=== PATIENT | female | born 1950 | race Caucasian/White ===

== ENCOUNTER → 2017-06-09 | Day surgery (SDC) | payer OTHER ==
[~2017-06-09] VITALS: Ht 177.8 cm; Wt 166.0 kg
[~2017-06-09] MED LIST: ACETAMINOPHEN 325 MG TAB PO PRN; ADENOSINE IV SOLN 3 MG/ML 20 ML VIAL ONE; ASCO1CAP3 PO; ATEN-175 PO; ATROPINE SULFATE 0.1 MG/ML 5ML SYR IV PRN; CALC-338 PO; CETI10TA84 PO; CLB200 PO; CYAN3INJ IM; CYM/30 PO; DC ALL ANTICOAGULANTS ONE; DOCU100C31 PO; ERGO500037 PO; FENTANYL CITRATE INJ 50 MCG/1 ML 2 ML VIAL ONE; FLX10 PO; FURO-85 PO; HEPARIN SOD (PORCINE) 1000 UNIT/ML 10 ML VIAL ONE; HYDR-4079 PO; KCLP20 PO; LEVO175T PO; MELO15TA4 PO; MIDAZOLAM HCL 1 MG/ML 2ML VIAL ONE; MULTTAB58 PO; NITROGLYCERIN/D5W 100MCG/ML 20ML SYR ONE; NYST1POW7 TOP; NiCARDipine HCL INJ 2.5 MG/ML 10 ML AMP ONE; OXYSR10 PO; POLY1POW2 PO; PXL/40 PO; RIVA1TAB4 PO; SODIUM CHLORIDE 0.9% 1000ML 1,000 ML IV SCH; SODIUM CHLORIDE 0.9% 1000ML 250 ML IV PRN; VTMD PO; ZOLP10TA6 PO
[2017-06-09 07:13] VITALS: BP 148/78; PULSE 83; TEMP 36.7; O2SAT 98; Ht 177.8 cm; Wt 166.0 kg
--- NOTE | 2017-06-09 09:42 | History & Physical Bridge Note ---
H&P Re-Evaluation Bridge Note: I have examined the patient, reviewed the History & Physical and in the interval since the performance of the History & Physical I have noted the following changes of clinical significance: No changes noted
--- NOTE | 2017-06-09 09:50 | Cardiac Catheterization ---
Procedure Note Procedure Date Jun 09, 2017. Pre-Procedure Diagnosis Angina AUC Score 6 Post-Procedure Diagnosis Moderate CAD Procedure(s) Performed Coronary Angiography, Left Heart Cath, LV Angiography Program Checker Dr. Mondragon Utilization Review Rn(s) None Estimated Blood Loss None Medication(s) Heparin, Versed, Lidocaine 1% Summary of Findings Proximal LAD with an equivocal 50% eccentric stenosis Hemodynamics Rest Ao: 113/78 Final Ao: 125/72 LV: 139/5 Recommendations management recommendations (FFR) Specimens None Radiation Exposure (mGy) 768 Contrast (mls) 117 Fluids (cc crystalloids) 206 Procedural Complication(s) None Disposition Stave Cutting Supervisor Holding/Recovery ACC Data Cardiac Status Clinical evaluation leading to the procedure CAD Presntation: Stable angina Anginal Classification: CCS II Heart Failure: No Cardiogenic Shock w/in 24Hrs: No Cardiac Arrest w/in 24Hrs: No Imaging studies past 6 months: No Stress studies past 6 months: No Coronary Anatomy Dominant: Right Left Main (% Stenosis): Normal LAD (% Stenosis): Proximal (50%) Circumflex (% Stenosis): Normal RCA (% Stenosis): Normal
--- NOTE | 2017-06-09 10:36 | Procedure Note ---
Post-Mod Sedation Assessment General Date of Moderate Sedation Jun 09, 2017. Vital Signs: Vital Signs Past 12 Hours Date Time Temp Pulse Resp B/P (MAP) Pulse Ox O2 Delivery O2 Flow Rate FiO2 06/09/17 10:16 81 18 140/80 (100) 97 Room Air 06/09/17 07:13 36.7 83 20 148/78 98 Room Air Review - Discharge Criteria Vital Signs Stable: Yes Alert/Oriented/Conversant: Yes Returned to Baseline Mental St: Yes Nausea Absent/Minimal: Yes Pain/Discomfort/Absent/Minimal: Yes Normal/Baseline Respirations: Yes Active Bleeding?: No Pt Received D/C Instructions: Yes Prescriptions Given: None Specific Proced. D/C Criteria Distal Pulses Present (Cardiac: Yes Groin site assessed-Card Cath: Yes Voided Prior To Discharge: Yes Discharged Patients Adult Escort/Transportation: Yes
--- NOTE | 2017-06-09 10:51 | Cardiac Catheterization ---
Procedure Note Procedure Date Jun 09, 2017. Pre-Procedure Diagnosis Angina, CAD Post-Procedure Diagnosis Moderate CAD, Cardiothoracic Finding (FFR of proximal LAD stenosis 0.93) Procedure(s) Performed Coronary Angiography, Fractional Flow Cobb Investigation Specialist Dr. Pathak Lead Ruby On Rails Developer(s) JACOBY Segura Estimated Blood Loss 20 Medication(s) Fentanyl, Heparin, Nicardipine (intra arterial), Versed, Lidocaine 1% Summary of Findings Procedure: Fractional flow reserve measurement of proximal LAD stenosis noted on diagnostic cardiac catheterization. Catheterization site: 6 [place] slender glide sheath right radial artery inserted at time of diagnostic cardiac catheterization performed by Dr. Mayur Mondragon. Equipment: 6 [place] EBU 3.75 guide catheter, [place] pressure wire. Protocol: Intravenous heparin was administered to achieve a therapeutic activated clotting time. After the pressure wire was calibrated and normalized it was advanced past the proximal LAD stenosis. IFR and then FFR measurements were performed. FFR measurements were performed after administration of intravenous adenosine at a dose of 180 micrograms/kilogram per minute. It was given for 2 minutes. Follow-up angiography was performed following FFR measurements from orthogonal projections with the wire in place and then with the wire withdrawn. Complications: None. Hemostasis: Terumo TR band. Findings: The IFR measurement was 0.95. The FFR measurement was 0.93. On follow-up angiography there is no evidence of dissection, thrombus, perforation , or distal embolic event. Plan: Based on the IFR in FFR measurements intervention to the LAD stenosis is not indicated. The patient will have continued cardiology follow-up with her caster investment casting Dr. Evangelist Graff. Hemodynamics Rest Ao: 116/68/91 mm Hg Final Ao: 122/72/97 mm Hg LV: NA Recommendations Medical therapy and/or Counseling Specimens None Radiation Exposure (mGy) Total of 1542 for both diagnostic and FFR procedures. Contrast (mls) 45 ml Visipaque Fluids (cc crystalloids) Total of 235 milliliters normal saline for both procedures Drains None Anesthesia Intravenous Versed and fentanyl. Start time 09:39. End time 10:15. Procedural Complication(s) None Disposition Plunger Scoop Operator Holding/Recovery ACC Data Cardiac Status Clinical evaluation leading to the procedure CAD Presntation: Stable angina Anginal Classification: CCS II Heart Failure: No Cardiogenic Shock w/in 24Hrs: No Cardiac Arrest w/in 24Hrs: No Imaging studies past 6 months: Yes Stress studies past 6 months: No Coronary Anatomy Dominant: Right (For complete details please see diagnostic cardiac catheterization report performed by Dr. Mayur Mondragon) Grafts - Circumflex (%): Mid Diagnostic Physician's Name: Mayur Mondragon, DO Status: Elective Closure Device Percutaneous Entry Location: Radial Closure Device: Radial Band Recommendations: Medical therapy and/or Counseling Lesion Segment Name: Proximal LAD Culprit Artery: Yes Stenosis Prior to Rx (%): 50 Chronic Total Occlusion: No (The) IVUS: No FFR: Yes (Of yoseph dawson) Ratio: greater than 0.75% Pre-Procedure FRANKIE Flow: 3 Previously Treated Lesion: No Lesion Complexity: Non-High/Non-C Lesion Length (mm): 9 Thrombus Present: No Bifurcation Lesion: No Guidewire Across Lesion: Yes Guidewire: Stenosis Post-Procedure (%): 50 Post-Procedure FRANKIE Flow: 3 Device(s) Deployed: No Intraprocedure Events Significant Dissection: No Perforation: No
--- NOTE | 2017-06-09 11:54 | Discharge Instructions ---
Discharge Instructions Procedure Procedure Date: Jun 09, 2017. Reason for Visit: Exertional Angina *Dr Mondragon Doing*. Discharge Discharge Date: Jun 09, 2017. Discharge Diagnosis: Minor CAD Last Recorded Wt (Kilograms): 166 Anesthesia Post Anesthesia Instructions: If you have had General Anesthesia or IV Sedation: * Do not drive today. * Resume driving when surgeon permits. * Do not make important decisions or sign legal documents today. * Call surgeon for: 1. Temperature elevations greater than 101 degrees F. 2. Uncontrollable pain. 3. Excessive bleeding. 4. Persistent nausea and vomiting. 5. Medication intolerance (nausea, vomiting or rash). * For nausea and vomiting use only clear liquids such as: tea, soda, bouillon until nausea subsides, then gradually increase diet as tolerated. * If you have any concerns or questions, call your surgeon's office. If physician is unavailable and it is an emergency, call 911 or go to the nearest emergency room. Instructions Activity Recommendations: limitations Recommended Home Diet: resume previous diet Allergies: Coded Allergies: Statins (Verified Allergy, Unknown, SEVERE MUSCLE ACHES, 05/04/15) Amoxicillin (Verified Adverse Reaction, Mild, caused yeast infection, 05/04) Cephalexin (Verified Adverse Reaction, Mild, caused yeast infection, ) Clavulanic Acid (Verified Adverse Reaction, Mild, caused yeast infection, 05/04/15) Provider Instructions ACTIVITY RECOMMENDATIONS: Excess manipulation of the wrist should be avoided for the next 24-48 hours. * No lifting over 2 pounds (approximately a 1/2 gallon of milk) with the utilized arm for 24 hours. * No strenuous activity such as bowling or tennis for 3 days. * Keep the site of the procedure covered with a bandage for 24 hours. *You may shower the day after the procedure. Do not take a tub bath or submerge the puncture site in water for the next 3 days. *Do not operate any motorized equipment for 3 days. SPECIAL CARE INSTRUCTIONS: The site may be slightly bruised and sore following your procedure. Should any of the following occur, contact the DrDianne who performed your procedure. 1. Redness/inflammation, swelling, chills, or fever, or colored drainage at procedure site within 3-7 days after your procedure. 2. Coldness, discoloration, ongoing numbness, severe pain, or swelling. Expect mild tingling of hand and tenderness at the puncture site for up to three days. If this persists beyond three days, or other symptoms develop, notify the Dr. who performed your procedure. BLEEDING: If the procedure site on your wrist begins to bleed, do not panic 1. Place 1 or 2 fingers firmly just slightly above the insertion site to stop the bleeding. You may be able to feel your pulse as you hold pressure. 2. Lift your finger after 5 minutes to see if the bleeding has stopped. 3. Once the bleeding has stopped, gently wipe the wrist area clean with a bandage. * If the bleeding from your wrist does not stop after 10 minutes, or if there is a large amount of bleeding or spurting, call 911 ([address] drive yourself to the hospital). SKIN IRRITATION: * You may experience some redness and/or swelling in the area where radiation was administered. If any skin irritation occurs, please contact your family physician. FOLLOW UP VISIT: Keep any scheduled doctor appointments. Follow Up Follow-up with: Follow-up with Dr. Graff as previously scheduled. Raf Sanders Recommendations: Call your doctor if: * Temperature above 101 degrees * Pain not relieved by pain medicine ordered * There is increased drainage or redness from any incision * You have any unanswered questions or concerns. Your Doctors Instructions noted above were prepared by provider Mayur Mondragon. Patient Signature Section: Patient Instructions Signature Page Leslie Fowler Patient (or Guardian) Signature/Date: I have read and understand the instructions given to me by my caregivers. Caregiver/RN/Doctor Signature/Date: The above-named patient and/or guardian has received patient instructions on this date. + Original Patient Signature Page (only) stays with chart. Please make copy for patient.
[2017-06-09 12:30] VITALS: BP 148/92; PULSE 83; O2SAT 96
== END | disposition home or self-care (01) ==
LOC: C.CATH 07:03
PROVIDERS: ATTEND Specialist
DX: I25.119 Atherosclerotic heart disease of native coronary artery with unspecified angina pectoris (principal); I48.0 Paroxysmal atrial fibrillation; Z98.84 Bariatric surgery status; Z96.653 Presence of artificial knee joint, bilateral; Z79.01 Long term (current) use of anticoagulants; Z79.899 Other long term (current) drug therapy